=== PATIENT | male | born 1935 | race Caucasian/White ===

== ENCOUNTER → 2016-09-10 08:53 | Day surgery (SDC) | payer OTHER ==
[~2016-09-10 08:53] MED LIST: Acetaminophen TAB* 325 MG PO PRN; Buffered Lidocaine 1% SYR 3ML* 3 ML/SYR SYRINGE INTRADERM ONE; Buffered Lidocaine 1% SYR 3ML* 3 ML/SYR SYRINGE ONE; Cyclopentolate 1% OPTH.SOL* 2 ML BTL ONE; Flurbiprofen 0.03% OPTH.SOL* 2.5 ML BTL ONE; Lidocaine 1% MPF* 2 ML VIAL ONE; Lidocaine 2% EPI 1:200000 MPF* 20 ML VIAL ONE; Midazolam* 1 MG/ML 2 ML VIAL (2 MG) ONE; Neomycin/Polymy/Dex OPTH.SUSP* MAXITROL 0.1% 5 ML ONE; Phenylephrine 2.5% OPTH.SOL* 2 ML BTL ONE; Povidone Iodine 5% OPTH* 30 ML BTL ONE; Proparacaine 0.5% OPHTH.SOL* 15 ML BTL ONE; acetaZOLAMIDE TAB* 250 MG ONE
[2016-09-10 12:17] VITALS: BP 136/76
--- NOTE | 2016-09-10 13:07 | OP ---
DATE OF OPERATION: 09/10/2016. DATE OF : 1935. SURGEON: Brandyn Swan M.D. PREOPERATIVE DIAGNOSIS: Cataract right eye. POSTOPERATIVE DIAGNOSIS: Cataract right eye. OPERATIVE PROCEDURE: Phacoemulsification right eye with IOL. PROCEDURE: The patient was brought to the operating room after being given 1/2% Alcaine with epinep hrine drops in the preoperative area. The eye was prepped and draped in the usual sterile fashion. Sterile drape and eyelid speculum were placed. Again, topical 1/2% Alcaine with epinephrine was gi saurabh. A paracentesis incision was made at the 9 o'clock position with the No.75 blade. Clear cornea incision 2.2 x 2.2-mm was created at the 12 o'clock position starting at the anterior limbus using the 2.2-mm keratome. The anterior chamber was irrigated with 0.4 mL of 1% non-preservative intracam eral lidocaine and filled with DisCoVisc. A capsulorrhexis was completed using the cystotome and th e Utrata forceps. Hydrodissection was performed with balanced salt solution. The lens nucleus was r emoved with the Phacoemulsification handpiece without incident. Cortex was removed with the irrigat ion-aspiration handpiece. The capsular bag was re-inflated using DisCoVisc and an SN60WF 22.5 impla nt was inserted with the shooter. The irrigation-aspiration handpiece was used to remove all residu al DisCoVisc. The eye was refilled with balanced salt solution and the wound checked and found to b e watertight. Topical Maxitrol drops were given. [id number]/[facility] #: [id number]
== END | disposition home or self-care (01) ==
LOC: OREAST 08:53
PROVIDERS: ATTEND Specialist
DX: H25.811 Combined forms of age-related cataract, right eye (principal); D69.6 Thrombocytopenia, unspecified
CPT/HCPCS: A9270-GY; J2250; V2632

== ENCOUNTER 2017-10-26 10:57 | Emergency (ER) | payer OTHER ==
--- NOTE | 2017-10-26 12:06 | RAD ---
INDICATION: Fall. Possible head injury COMPARISON: None TECHNIQUE: Noncontrast axial source images were acquired from the skull base to the vertex. FINDINGS: Ventricles/sulci: The ventricles and cisterns are normal in size and configuration for age. There are age-related involutional changes Brain parenchyma: There is no focal parenchymal finding, evidence of intracranial mass, or intracranial mass effect. Intracranial hemorrhage:None. Extra-axial spaces: There are no abnormal extra axial fluid collections or evidence of extra-axial mass. Calvarium: There is no calvarial fracture or other calvarial abnormality. Scalp: There is no evidence of scalp or extracalvarial soft tissue abnormality. Paranasal sinuses/mastoid: The paranasal sinuses and mastoid air cells are clear. Other: None. IMPRESSION: No acute intracranial findings
--- NOTE | 2017-10-26 12:20 | RAD ---
INDICATION: Right elbow pain COMPARISON: None TECHNIQUE: AP, lateral, and oblique views were obtained. FINDINGS: The bony structures, joint spaces, and soft tissues are normal for age. IMPRESSION: NEGATIVE EXAMINATION.
[2017-10-26 12:43] VITALS: BP 126/61
--- NOTE | 2017-10-26 15:47 | ED ---
Adult Trauma - HPI Summary HPI Summary: Patient presents to the ED status post fall approximately 1 hour prior to arrival. He endorses right posterior elbow pain. He states the fall was mechanical, however after he got up from the fall he began to feel dizzy and lightheaded and nauseous. Denies vomiting. By the time he arrived to the ED, he states he felt improved, however is continuing to complain of right elbow pain. He is unsure if he hit his head, but denies loss of consciousness. He states he was needing the assistance of those around him as he was dizzy after the accident. He denies any blood thinners, is neurologically intact and is otherwise healthy. There is no bleeding or bruising from the elbow. He denies any headache, confusion, memory loss. - History of Current Complaint Chief Complaint: EDDizziness Stated Complaint: FALL,RT ELBOW PAIN Time Seen by Provider: 10/26/17 11:05 Hx Obtained From: Patient Mechanism of Injury: Direct Blow Ambulatory at the Scene: Yes Loss of Consciousness: no loss of consciousness Onset of Pain: Minutes Onset Severity: Moderate Current Severity: Moderate Pain Intensity: 0 Pain Scale Used: 0-10 Numeric Location: Other - Elbow Character: Aching Aggravating Factor(s): Movement Alleviating Factor(s): Rest Associated Signs & Symptoms: Negative: Chest Pain, Cough, Abdominal Pain, Nausea /Vomiting, Loss of Consciousness, Memory Loss, Numbness/Weakness, Painful Respirations - Allergy/Home Medications Allergies/Adverse Reactions: Allergies Allergy/AdvReac Type Severity Reaction Status Date / Time alcohol Allergy Anaphylatic Verified 10/26/17 11:56 Shock hydrocodone Allergy Eyes Verified 10/26/17 11:56 Itchy/Swollen/Red/Watery kiwi Allergy Swelling Verified 10/26/17 11:56 Of Face,Lips,& Throat cats Allergy Mild Itching Uncoded 09/10/16 09:39 PMH/Surg Hx/FS Hx/Imm Hx Previously Healthy: Yes Endocrine/Hematology History: Denies: Hx Diabetes Cardiovascular History: Denies: Hx Hypertension History: Denies: Hx Renal Disease Musculoskeletal History: Reports: Hx Arthritis - fingers Sensory History: Reports: Hx Cataracts - pending surgery, Hx Contacts or Glasses - reading Denies: Hx Hearing Aid Opthamlomology History: Reports: Hx Cataracts - pending surgery, Hx Contacts or Glasses - reading - Cancer History Cancer Type, Location and Year: basal cell carcinoma - Surgical History Surgery Procedure, Year, and Place: L knee meniscus repair. hemorreidectomy. appendectomy as a child Hx Anesthesia Reactions: No - Immunization History Hx Pertussis Vaccination: No Immunizations Up to Date: Unable to Obtain/Confirm Infectious Disease History: No Infectious Disease History: Denies: Traveled Outside the [place] in Last 30 Days - Social History Occupation: Employed Full-time Lives: With Family Alcohol Use: Occasionally Hx Substance Use: No Substance Use Type: Reports: None Hx Tobacco Use: No Smoking Status (MU): Never Smoked Tobacco Review of Systems Constitutional: Negative Negative: Fever, Chills, Fatigue Eyes: Negative Cardiovascular: Negative Genitourinary: Negative Positive: no symptoms reported, see HPI Positive: Arthralgia, Myalgia Neurological: Negative All Other Systems Reviewed And Are Negative: Yes Physical Exam Triage Information Reviewed: Yes Vital Signs On Initial Exam: Initial Vitals Temp Pulse Resp BP Pulse Ox 97.6 F 61 16 117/63 97 10/26/17 11:04 10/26/17 11:04 10/26/17 11:04 10/26/17 11:04 10/26/17 11:04 Vital Signs Reviewed: Yes Appearance: Positive: Well-Appearing, Well-Nourished Skin: Positive: Warm, Skin Color Reflects Adequate Perfusion Head/Face: Positive: Normal Head/Face Inspection Eyes: Positive: EOMI, TACOS, Conjunctiva Clear Neck: Positive: Supple, No Lymphadenopathy Respiratory/Lung Sounds: Positive: Clear to Auscultation, Breath Sounds Present Cardiovascular: Positive: Normal, RRR, Pulses are Symmetrical in both Upper and Lower Extremities Musculoskeletal: Positive: Pain @ - Right elbow joint Neurological: Positive: Speech Normal Psychiatric: Positive: Normal Diagnostics - Vital Signs Vital Signs Temp Pulse Resp BP Pulse Ox 10/26/17 12:42 97.9 F 64 16 126/61 98 10/26/17 11:04 97.6 F 61 16 117/63 97 - Laboratory Lab Statement: Any lab studies that have been ordered have been reviewed, and results considered in the medical decision making process. Adult Trauma Course/Dx - Course Course Of Treatment: On arrival to the ED, EKG immediately performed which shows sinus bradycardia, but he states this is at his baseline. Due to the uncertainty of head trauma, CT brain obtained and shows no findings. Right elbow x-ray obtained which is negative. He states he is feeling improved and would like to be discharged home. I have recommended ibuprofen 6 her milligrams 3 times a day. Range of motion is intact, but states it is with mild amount of discomfort. No ecchymosis or swelling to the area. - Diagnoses Provider Diagnoses: Right elbow pain Discharge - Discharge Plan Condition: Stable Disposition: HOME Referrals: Marck Posey MD [Primary Care Provider] -
== END 2017-10-26 12:42 | disposition home or self-care (01) ==
LOC: ED 10:57
DX: M25.521 Pain in right elbow (principal); R42 Dizziness and giddiness; Z91.81 History of falling; Z88.5 Allergy status to narcotic agent
CPT/HCPCS: 70450; 93005; 99282

== ENCOUNTER 2018-09-04 16:43 | Emergency (ER) | payer OTHER ==
[2018-09-04 17:42] VITALS: BP 143/86
--- NOTE | 2018-09-04 18:05 | UC ---
Ear Complaint HPI - HPI Summary HPI Summary: The patient is now 83-year-old male that has had intermittent severe left ear pain for about a day or 2. He has had sinus pressure and nasal congestion for about a week. He has had no fever or chills. He has Flonase at home but has not been using it. - History of Current Complaint Chief Complaint: UCEar Stated Complaint: EAR PAIN Time Seen by Provider: 09/04/18 18:05 Hx Obtained From: Patient Onset/Duration: Sudden Onset, Other - last seconds/occurs multiple times a day Severity Initially: Mild Severity Currently: Moderate Pain Intensity: 5 Pain Scale Used: 0-10 Numeric Associated Signs/Symptoms: Positive: URI Symptoms - Allergies/Home Medications Allergies/Adverse Reactions: Allergies Allergy/AdvReac Type Severity Reaction Status Date / Time alcohol Allergy Anaphylatic Verified 10/26/17 11:56 Shock hydrocodone Allergy Eyes Verified 10/26/17 11:56 Itchy/Swollen/Red/Watery kiwi Allergy Swelling Verified 10/26/17 11:56 Of Face,Lips,& Throat cats Allergy Mild Itching Uncoded 09/10/16 09:39 PMH/Surg Hx/FS Hx/Imm Hx Previously Healthy: Yes - Surgical History Surgical History: Yes Surgery Procedure, Year, and Place: L knee meniscus repair. hemorreidectomy. appendectomy as a child - Family History Known Family History: Positive: Hypertension - Social History Alcohol Use: Weekly Substance Use Type: None Smoking Status (MU): Never Smoked Tobacco Review of Systems All Other Systems Reviewed And Are Negative: Yes Constitutional: Positive: Negative Skin: Positive: Negative Eyes: Positive: Negative ENT: Positive: Ear Ache, Nasal Discharge, Sinus Congestion, Sinus Pain/ Tenderness Respiratory: Positive: Negative Cardiovascular: Positive: Negative Gastrointestinal: Positive: Negative Genitourinary: Positive: Negative Motor: Positive: Negative Neurovascular: Positive: Negative Musculoskeletal: Positive: Negative Neurological: Positive: Negative Psychological: Positive: Negative Physical Exam Triage Information Reviewed: Yes Appearance: Well-Appearing, No Pain Distress, Well-Nourished Vital Signs: Initial Vital Signs Temp 99.4 F 09/04/18 17:36 Pulse 71 09/04/18 17:36 Resp 16 09/04/18 17:36 BP 143/86 09/04/18 17:36 Pulse Ox 96 09/04/18 17:36 Vital Signs Reviewed: Yes Eyes: Positive: Conjunctiva Clear ENT: Positive: Nasal congestion, TMs normal, Uvula midline. Negative: Hearing grossly normal, Nasal drainage, Tonsillar swelling, Tonsillar exudate, Trismus, Muffled voice, Hoarse voice, Sinus tenderness Dental: Negative: Abscess @ Neck: Positive: Supple Respiratory: Positive: Lungs clear, Normal breath sounds, No respiratory distress Cardiovascular: Positive: RRR, No Murmur Musculoskeletal: Positive: ROM Intact, No Edema Neurological: Positive: Alert Psychological Exam: Normal Skin Exam: Normal Ear Complaint Course/Dx - Differential Dx/Diagnosis Provider Diagnosis: Dysfunction of left eustachian tube Discharge - Sign-Out/Discharge Documenting (check all that apply): Patient Departure All imaging exams completed and their final reports reviewed: No Studies - Discharge Plan Condition: Stable Disposition: HOME Patient Education Materials: Serous Otitis Media (ED) Referrals: Marck Posey MD [Primary Care Provider] - If Needed Additional Instructions: I suggest you use your fluticasone (flonase) nasal spray (2 sprays each nostril twice daily for 2-3 weeks - Billing Disposition and Condition Condition: STABLE Disposition: Home
== END 2018-09-04 18:21 | disposition home or self-care (01) ==
LOC: UCEAST 16:43
DX: H69.92 Unspecified Eustachian tube disorder, left ear (principal); Z88.5 Allergy status to narcotic agent
CPT/HCPCS: 99201; G0463

== ENCOUNTER 2018-10-08 09:01 | Emergency (ER) | payer OTHER ==
[2018-10-08 09:28] VITALS: BP 153/75
--- NOTE | 2018-10-08 11:10 | UC ---
Complaint Male HPI - HPI Summary HPI Summary: PT HAS HAD "LUMPS" IN BILATERAL GROIN FOR "SOME TIME". 2 DAYS AGO HE LIFTED A HEAVY BOX AND FELT A TEARING SENSATION IN LEFT GROIN. LUMP IS NOW BIGGER AND PAINFUL. DENIES URINARY SX. NO FEVER, N/V. 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 NO HISTORY OF INGUINAL HERNIA REPAIR. - History of Current Complaint Chief Complaint: UCAbdominalPain Stated Complaint: GROIN PAIN Time Seen by Provider: 10/08/18 10:35 Hx Obtained From: Patient, Family/Section Plotter Operator - Onset/Duration: Sudden Onset, Lasting Days, Still Present Timing: Constant Severity Initially: Moderate Severity Currently: Moderate Pain Intensity: 10 Pain Scale Used: 0-10 Numeric Location: Groin - LEFT Character: Sharp Aggravating Factor(s): Straining Alleviating Factor(s): Other - REST Associated Signs And Symptoms: Positive: Negative - Allergies/Home Medications Allergies/Adverse Reactions: Allergies Allergy/AdvReac Type Severity Reaction Status Date / Time alcohol Allergy Anaphylatic Verified 10/08/18 09:29 Shock hydrocodone Allergy Eyes Verified 10/08/18 09:29 Itchy/Swollen/Red/Watery kiwi Allergy Swelling Verified 10/08/18 09:29 Of Face,Lips,& Throat cats Allergy Mild Itching Uncoded 10/08/18 09:29 PMH/Surg Hx/FS Hx/Imm Hx Other Cancer History: BASAL CELL CANCER - Surgical History Surgical History: Yes Surgery Procedure, Year, and Place: L knee meniscus repair. hemorreidectomy - Family History Known Family History: Positive: Hypertension - Social History Alcohol Use: Weekly Substance Use Type: None Smoking Status (MU): Never Smoked Tobacco Review of Systems All Other Systems Reviewed And Are Negative: Yes Constitutional: Positive: Negative Skin: Positive: Negative Respiratory: Positive: Negative Cardiovascular: Positive: Negative Gastrointestinal: Positive: Abdominal Pain Genitourinary: Positive: Negative Physical Exam Triage Information Reviewed: Yes Appearance: Well-Appearing, Well-Nourished, Pain Distress - MILD - WITH MVMT Vital Signs: Initial Vital Signs Temp 98 F 10/08/18 09:26 Pulse 75 10/08/18 09:26 Resp 18 10/08/18 09:26 BP 153/75 10/08/18 09:26 Pulse Ox 100 10/08/18 09:26 Laboratory Tests 10/08/18 10:21 POC Urine Color Yellow POC Urine Clarity Clear POC Urine pH 5.5 POC Ur Specif [place] 1.020 POC Urine Protein Negative POC Ur Glucose (UA) Negative POC Urine Ketones Negative POC Urine Blood Trace-intact A POC Urine Nitrite Negative POC Urine Bilirubin Negative POC Urine Urobilinogen 0.2 POC U Leukocyte Esteras Negative Vital Signs Reviewed: Yes Eyes: Positive: Conjunctiva Clear ENT: Positive: Hearing grossly normal Neck: Positive: Supple Respiratory: Positive: No respiratory distress, No accessory muscle use Cardiovascular: Positive: Pulses Normal Abdomen Description: Positive: Soft, Other: - BILATERAL INGUINAL HERNIA - LEFT BIGGER THAN RIGHT. REDUCIBLE BUT VERY TENDER. Negative: CVA Tenderness (R), CVA Tenderness (L), Distended, Guarding Musculoskeletal: Positive: No Edema Neurological: Positive: Alert Psychological: Positive: Normal Response To Family, Age Appropriate Behavior Skin: Negative: Rashes Complaint Male Course/Dx - Course Course Of Treatment: BILATERAL INGUINAL HERNIAS ON PHYSICAL EXAM. LEFT IS WORSE. REDUCIBLE BUT PAINFUL. APPT WITH SURGERY SCHEDULED FOR TODAY AT 11:45AM. PT ALSO ADVISED TO FOLLOW-UP ON TRACE BLOOD IN THE URINE. - Differential Dx/Diagnosis Provider Diagnosis: Bilateral inguinal hernia Discharge - Sign-Out/Discharge Documenting (check all that apply): Patient Departure All imaging exams completed and their final reports reviewed: No Studies - Discharge Plan Condition: Stable Disposition: HOME Patient Education Materials: Inguinal Hernia (ED), Hematuria (ED) Referrals: Marck Posey MD [Primary Care Provider] - If Needed Seun Yo MD [Medical Doctor] - (YOU HAVE AN APPT TODAY AT 11:45AM. GO DIRECTLY THERE FROM HERE.) Additional Instructions: GO DIRECTLY TO DR. YO'S OFFICE FROM HERE. YOU HAVE AN APPT TODAY AT 11:45AM YOU HAD TRACE BLOOD IN YOUR URINE SAMPLE TODAY. FOLLOW-UP WITH YOUR PCP IN SEVERAL WEEKS TO REPEAT YOUR URINE TEST TO ENSURE THE BLOOD HAS CLEARED. STAY WELL HYDRATED. IF THE BLOOD IS PERSISTENT I WOULD RECOMMEND UROLOGY EVALUATION. - Billing Disposition and Condition Condition: STABLE Disposition: Home
[2018-10-08] MEDS ORDERED: Ondansetron ODT TAB* 4 MG PO ONE (11:27)
== END 2018-10-08 11:10 | disposition home or self-care (01) ==
LOC: UCEAST 09:01
DX: K40.20 Bilateral inguinal hernia, without obstruction or gangrene, not specified as recurrent (principal); Z88.5 Allergy status to narcotic agent
CPT/HCPCS: 81003; 99211; G0463

== ENCOUNTER → 2018-10-12 11:52 | Day surgery (SDC) | payer OTHER ==
[~2018-10-12 11:52] MED LIST changes: -Buffered Lidocaine 1% SYR 3ML* 3 ML/SYR SYRINGE INTRADERM ONE; -Buffered Lidocaine 1% SYR 3ML* 3 ML/SYR SYRINGE ONE; +Buffered Lidocaine 1% SYRIN* 1 ML/SYRINGE INTRADERM ONE; +Bupivacaine 0.5% W/EPI SDV* 30 ML VIAL ONE; -Cyclopentolate 1% OPTH.SOL* 2 ML BTL ONE; -Flurbiprofen 0.03% OPTH.SOL* 2.5 ML BTL ONE; +Lactated Ringers 1000 ML Bag* 1,000 ML IV SCH; +Lidocaine 1% INJ* 10 MG/ML 30 ML SDV ONE; -Lidocaine 1% MPF* 2 ML VIAL ONE; -Lidocaine 2% EPI 1:200000 MPF* 20 ML VIAL ONE; +Lidocaine 2% PF * 5 ML VIAL ONE; +Naloxone* 0.4 MG/ML 1 ML VIAL IV PRN; -Neomycin/Polymy/Dex OPTH.SUSP* MAXITROL 0.1% 5 ML ONE; +Ondansetron INJ* 2 MG/ML VIAL IV PRN; -Phenylephrine 2.5% OPTH.SOL* 2 ML BTL ONE; -Povidone Iodine 5% OPTH* 30 ML BTL ONE; -Proparacaine 0.5% OPHTH.SOL* 15 ML BTL ONE; +Propofol* 10 MG/ML 20 ML BTL ONE; -acetaZOLAMIDE TAB* 250 MG ONE; +ceFAZolin 2 GM PREMIX in ORs 2 GM/50 ML BAG IVPB ONE; +fentaNYL* 50 MCG/ML 2 ML VIAL (100 MCG VIAL) IV PRN; +oxyCODONE TAB* 5 MG TAB PO PRN
[2018-10-12 15:18] VITALS: BP 134/79
--- NOTE | 2018-10-12 18:54 | OP ---
CC: Dr. Marck Posey * DATE OF OPERATION: 10/12/18 - MERGED WITH [facility] DATE OF : 33. SURGEON: Seun Yo MD VAMP MARKER: None. ANESTHESIOLOGIST: Dr. Parra. ANESTHESIA: LMAC anesthesia. PRE-OP DIAGNOSIS: Left inguinal hernia. POST-OP DIAGNOSIS: Left inguinal hernia. OPERATIVE PROCEDURE: Open repair of left inguinal hernia with mesh. DESCRIPTION OF PROCEDURE: The patient was supine on the operating room table. After adequate intravenous sedation, compression stockings, and Jaclyn Hugger warmer, the left groin was clipped and prepped with antiseptic, draped in a sterile fashion. Local infiltrative anesthesia was administered. Approximately 6 cm incision was created and carried down to the external oblique , which was opened in the direction of its fibers. Cord structures were encircled with a [place] drain and tented upward. The indirect space had a moderate sized sac, which was easily dissected free and reduced and a cone mesh plug was placed into the internal ring, sutured there with 2-0 Vicryl. A second piece of mesh was placed over the inguinal floor, sutured at the tubercle. Tails were split, brought around the cord structures and tacked down laterally. External oblique was closed over top with 2- 0 Vicryl, Sarah's with 3-0 Vicryl, and skin with 4-0 Prolene followed by a sterile dressing. He tolerated the procedure well, was brought to Recovery in good condition. There were no complications. No drains. No pathologic specimens. Sponge and instrument counts correct. Estimated blood loss 10 mL. [id number]/[facility] #: [id number] [facility]OSPITALKecia
== END | disposition home or self-care (01) ==
LOC: OR 11:52
PROVIDERS: ATTEND Surgery
DX: K40.90 Unilateral inguinal hernia, without obstruction or gangrene, not specified as recurrent (principal); Z86.718 Personal history of other venous thrombosis and embolism; M19.90 Unspecified osteoarthritis, unspecified site; N40.0 Benign prostatic hyperplasia without lower urinary tract symptoms
CPT/HCPCS: C1781; J0690; J2250; J2704

== ENCOUNTER 2019-05-23 12:41 | Day surgery (SDC) | payer OTHER ==
[~2019-05-23 12:41] MED LIST changes: -Acetaminophen TAB* 325 MG PO PRN; -Bupivacaine 0.5% W/EPI SDV* 30 ML VIAL ONE; +Famotidine IV* 10 MG/ML 2 ML (20 mg) IV ONE; -Lidocaine 1% INJ* 10 MG/ML 30 ML SDV ONE; -Lidocaine 2% PF * 5 ML VIAL ONE; -Midazolam* 1 MG/ML 2 ML VIAL (2 MG) ONE; -Naloxone* 0.4 MG/ML 1 ML VIAL IV PRN; -Ondansetron INJ* 2 MG/ML VIAL IV PRN; -Propofol* 10 MG/ML 20 ML BTL ONE; -ceFAZolin 2 GM PREMIX in ORs 2 GM/50 ML BAG IVPB ONE; -fentaNYL* 50 MCG/ML 2 ML VIAL (100 MCG VIAL) IV PRN; -oxyCODONE TAB* 5 MG TAB PO PRN
[2019-05-23] MEDS ORDERED: Famotidine IV* 10 MG/ML 2 ML (20 mg) ONE (13:26)
[2019-05-23] MEDS ORDERED: Bupivacaine 0.25% SDV PF* 10 ML VIAL INJ ONE (14:39)
[2019-05-23] MEDS ORDERED: Midazolam* 1 MG/ML 2 ML VIAL (2 MG) ONE (17:01)
[2019-05-23] MEDS ORDERED: fentaNYL* 50 MCG/ML 2 ML VIAL (100 MCG VIAL) ONE (17:01)
[2019-05-23] MEDS ORDERED: Naloxone* 0.4 MG/ML 1 ML VIAL IV PRN (18:12)
[2019-05-23 19:08] VITALS: BP 117/75
--- NOTE | 2019-05-23 23:20 | OP ---
DATE OF OPERATION: 05/23/19 - [facility] DATE OF : 33 SURGEON: Cheko Solorzano MD. PRE-OP DIAGNOSIS: Lymphoma. POST-OP DIAGNOSIS: Lymphoma. OPERATIVE PROCEDURE: Placement of PowerPort. INDICATIONS: Lymphoma requiring treatment. Risks of PowerPort included, but not limited to, bleeding, infection, pneumothorax explained to the patient who seemed to understand and agreed to the procedure and all questions answered. DESCRIPTION OF PROCEDURE: In the operating room, in the supine position, the left chest was prepped and draped in sterile fashion. Preoperative antibiotics had been given. He was placed in the Trendelenburg position. A needle was placed in the subclavian vein, and using Seldinger technique, a wire was passed into the vein towards the superior vena cava, identified on fluoroscopy. The needle was removed. The tract was dilated. A split sheath was placed over the wire. The wire was removed. The catheter was advanced through this split sheath down towards the superior vena cava, identified on fluoroscopy. The catheter was then tunneled under the skin to a subcutaneous pocket and connected to the port, which was placed in the pocket and aspirated blood easily and flushed with heparinized saline. The wound was closed in layers using 3-0 Monocryl. Glue was applied to the skin. He tolerated the procedure well. He was taken to the recovery room in stable condition where a chest x- ray was performed, showed good position of the catheter. No obvious pneumothorax. [id number]/[facility] #: [id number] MTDD
== END 2019-05-23 19:11 | disposition home or self-care (01) ==
LOC: OR 12:41
PROVIDERS: ATTEND Surgery
DX: C85.90 Non-Hodgkin lymphoma, unspecified, unspecified site (principal); I95.1 Orthostatic hypotension; M19.90 Unspecified osteoarthritis, unspecified site; D69.6 Thrombocytopenia, unspecified
CPT/HCPCS: 71045; 76000; C1788; J1642; J2250; J3010; J3490

== ENCOUNTER → 2019-06-14 11:16 | Day surgery (SDC) | payer OTHER ==
[~2019-06-14 11:16] MED LIST changes: -Buffered Lidocaine 1% SYRIN* 1 ML/SYRINGE INTRADERM ONE; -Famotidine IV* 10 MG/ML 2 ML (20 mg) IV ONE; +Heparin 2 UNITS/ML IVPREMIX* 1,000 ML IV SCH; -Lactated Ringers 1000 ML Bag* 1,000 ML IV SCH; +fentaNYL* 50 MCG/ML 2 ML VIAL (100 MCG VIAL) IV SCH
[2019-06-14 12:14] LABS: Mean Platelet Volume 8.8 fL (7.4-10.4); Platelet Count 118 10^3/uL (150-450)
[2019-06-14 12:24] LABS: Activated Partial Thrombo Time 28.4 seconds (26.0-38.0); INR 0.94 (0.82-1.09)
[2019-06-15 08:52] VITALS: BP 108/56
== END | disposition home or self-care (01) ==
LOC: IMG 11:16
PROVIDERS: ATTEND Physician Assistant
DX: C82.02 Follicular lymphoma grade I, intrathoracic lymph nodes (principal)
CPT/HCPCS: 36415; 37191; 85049; 85610; 85730; C1880; C1894; J1644; J3010; Q9967

== ENCOUNTER → 2019-11-02 10:28 | Day surgery (SDC) | payer OTHER ==
[~2019-11-02 10:28] MED LIST changes: +Heparin 2 UNITS/ML IVPREMIX* 1,000 ML IV ONE; -Heparin 2 UNITS/ML IVPREMIX* 1,000 ML IV SCH; +Iohexol 350 (CONTRAST) 200 ML MDV IV ONE; +LORazepam TAB(*) 1 MG ONE; +Lidocaine 1% INJ* 10 MG/ML 30 ML SDV ONE; +Midazolam* 1 MG/ML 5 ML VIAL (5 MG) ONE; -fentaNYL* 50 MCG/ML 2 ML VIAL (100 MCG VIAL) IV SCH; +fentaNYL* 50 MCG/ML 2 ML VIAL (100 MCG VIAL) ONE
[2019-11-02 11:52] LABS: ABS Eosinophils 0.1 10^3/ul (0-0.6); ABS Lymphocytes 0.9 10^3/ul (1.0-4.8); ABS Monocytes 0.7 10^3/ul (0-0.8); ABS Neutrophils 8.5 10^3/ul (1.5-7.7); Eosinophil % 0.7 %; Hematocrit 38 % (42-52); Hemoglobin 12.7 g/dL (14.0-18.0); Mean Corpuscular HGB Conc 33 g/dL (31-36); Mean Corpuscular Hemoglobin 31 pg (27-31); Mean Corpuscular Volume 92 fL (80-94); Mean Platelet Volume 8.9 fL (7.4-10.4); Platelet Count 155 10^3/uL (150-450); Red Blood Count 4.15 10^6 /uL (4.18-5.48); Red Cell Distribution Width 14 % (10-15); White Blood Count 10.3 10^3/uL (3.5-10.8)
[2019-11-02 12:04] LABS: BUN/Creatinine Ratio 31.2 (8-20); Calcium 9.5 mg/dL (8.6-10.3); EGFR African American 93.4 (>60); EGFR Non-African American 77.2 (>60); Potassium 4.3 mmol/L (3.5-5.0)
[2019-11-02 16:05] VITALS: BP 127/74
--- NOTE | 2019-11-02 16:21 | PN ---
Progress Note - Progress Note Date of Service: 11/02/19 SOAP: Subjective: No pain complaints at right neck or elsewhere. No abdominal pain. Objective: Selected Entries 11/02/19 11/02/19 15:28 15:44 Heart Rate 67 Respiratory 23 Rate Blood Pressure 127/74 (mmHg) Blood Pressure 93 Mean O2 Sat by Pulse 96 Oximetry Sitting up eating sandwich. AAO x 3 NAD Right neck is soft and nontender. There is a small amount of dried blood on the gauze. There is no abdominal tenderness to palpation. Assessment: 84-year-old man status post cavogram and uncomplicated removal of inferior vena cava filter. Plan: 1. DC to home. 2. No specific clinical follow-up is necessary, but if the patient experiences any abdominal pain or new lower extremity swelling he was advised to contact interventional radiology promptly.
== END | disposition home or self-care (01) ==
LOC: CHICATH 10:28
PROVIDERS: ATTEND Radiology Diagnostic Radiology
DX: Z86.711 Personal history of pulmonary embolism (principal); Z86.718 Personal history of other venous thrombosis and embolism; M54.6 Pain in thoracic spine
CPT/HCPCS: 36415; 37193; 75825; 76937; 80048; 85025; 88300; 99156; 99157; A9270-GY; C1769; J1644; J2250; J3010

== ENCOUNTER 2021-08-04 21:18 | Inpatient (IN) ==
[2021-08-04 22:57] LABS: ALT 11 U/L (7-52); AST 18 U/L (13-39); Albumin 3.7 g/dL (3.2-5.2); Albumin/Globulin Ratio 1.8 (1-3); Alkaline Phosphatase 68 U/L (35-149); Anion Gap 7 mmol/L (2-11); Blood Urea Nitrogen 25 mg/dL (6-24); C Reactive Protein 30.58 mg/L (<8.01); CO2 Carbon Dioxide 24 mmol/L (22-32); Calcium 8.6 mg/dL (8.6-10.3); Chloride 101 mmol/L (101-111); Globulin 2.1 g/dL (2-4); Glucose 107 mg/dL (70-100); Potassium 4.2 mmol/L (3.5-5.0); Sodium 132 mmol/L (135-145); Total Protein 5.8 g/dL (6.4-8.9); eGFR CKD-EPI 66.4 (>60)
[2021-08-04 23:01] LABS: Hematocrit 30 % (42-52); Hemoglobin 10.3 g/dL (14.0-18.0); Mean Corpuscular HGB Conc 35 g/dL (31-36); Mean Corpuscular Hemoglobin 33 pg (27-31); Mean Corpuscular Volume 94 fL (80-94); Mean Platelet Volume 9.1 fL (7.4-10.4); Platelet Count 67 10^3/uL (150-450); Red Blood Count 3.17 10^6 /uL (4.18-5.48); Red Cell Distribution Width 14 % (10-15); White Blood Count 0.8 10^3/uL (3.5-10.8)
[2021-08-04 23:04] LABS: Troponin I 0.04 ng/mL (<0.03)
[2021-08-04 23:21] LABS: ABS Lymphocytes 0.3 10^3/ul (1.0-4.8); ABS Monocytes 0.4 10^3/ul (0-0.8); ABS Neutrophils 0.1 10^3/ul (1.5-7.7); Eosinophil % 5.9 %; Lymphocyte % 35.6 %; Nucleated Red Blood Cells % 0.2
[2021-08-05] MEDS ORDERED: Cefepime 2 GM in Dextrose 2 GM/50 ML BAG IV ONE (00:55)
[2021-08-05] MEDS ORDERED: Lactated Ringers 1000 ml BAG 1,000 ML IV ONE ×2 (01:00→02:00)
[2021-08-05] MEDS ORDERED: Vancomycin 1,250 MG in NS 0.9% 250 ml 250 ML IVPB ONE (01:52)
[2021-08-05 03:11] LABS: Urine Appearance Clear; Urine Bilirubin Negative (Negative); Urine Blood Negative (Negative); Urine Color Yellow; Urine Glucose Negative (Negative); Urine Ketones Negative (Negative); Urine Nitrite Negative (Negative); Urine Protein Negative (Negative); Urine Specific Gravity 1.014 (1.002-1.030); Urine Urobilinogen Negative (Negative)
[2021-08-05 04:53] LABS: Troponin I 0.03 ng/mL (<0.03)
[2021-08-05] MEDS ORDERED: Cefepime 2 GM in Dextrose 2 GM/50 ML BAG IV SCH ×2 (09:00→17:00)
[2021-08-05] MEDS ORDERED: Cefepime 2 GM IV - ED ONCE IV ONE (09:00)
[2021-08-05] MEDS: Enoxaparin 40 MG/0.4 ML SYR SUBCUT SCH (09:13)
[2021-08-05 13:13] LABS: ABS Eosinophils 0.1 10^3/ul (0-0.6); ABS Lymphocytes 0.3 10^3/ul (1.0-4.8); ABS Monocytes 0.3 10^3/ul (0-0.8); ABS Neutrophils 0.1 10^3/ul (1.5-7.7); Eosinophil % 7.2 %; Hematocrit 32 % (42-52); Hemoglobin 11.1 g/dL (14.0-18.0); Lymphocyte % 40.9 %; Mean Corpuscular HGB Conc 34 g/dL (31-36); Mean Corpuscular Hemoglobin 32 pg (27-31); Mean Corpuscular Volume 94 fL (80-94); Mean Platelet Volume 8.8 fL (7.4-10.4); Nucleated Red Blood Cells % 0.3; Platelet Count 55 10^3/uL (150-450); Red Blood Count 3.43 10^6 /uL (4.18-5.48); Red Cell Distribution Width 14 % (10-15); White Blood Count 0.8 10^3/uL (3.5-10.8)
[2021-08-05] MEDS: Cefepime 2 GM in Dextrose 2 GM/50 ML BAG IV SCH (20:40)
[2021-08-06 06:56] LABS: Magnesium 2.1 mg/dL (1.9-2.7)
[2021-08-06] MEDS: Enoxaparin 40 MG/0.4 ML SYR SUBCUT SCH (08:00)
[2021-08-06 08:10] LABS: Calcium 8.6 mg/dL (8.6-10.3); Potassium 3.8 mmol/L (3.5-5.0)
[2021-08-06] MEDS ORDERED: Filgrastim* 480 MCG VIAL (AUTOSUB = ZARXIO*) SUBCUT SCH (09:00)
[2021-08-06 09:31] LABS: Hematocrit 33 % (42-52); Hemoglobin 11.3 g/dL (14.0-18.0); Mean Corpuscular HGB Conc 34 g/dL (31-36); Mean Corpuscular Hemoglobin 32 pg (27-31); Mean Corpuscular Volume 95 fL (80-94); Mean Platelet Volume 9.3 fL (7.4-10.4); Platelet Count 67 10^3/uL (150-450); Red Blood Count 3.47 10^6 /uL (4.18-5.48); Red Cell Distribution Width 14 % (10-15)
[2021-08-06] MEDS: Cefepime 2 GM in Dextrose 2 GM/50 ML BAG IV SCH ×2 (09:31→22:00)
[2021-08-06 10:07] LABS: ABS Eosinophils 0.1 10^3/ul (0-0.6); ABS Lymphocytes 0.4 10^3/ul (1.0-4.8); ABS Monocytes 0.5 10^3/ul (0-0.8); Eosinophil % 8.2 %; Nucleated Red Blood Cells % 0.5
[2021-08-06] MEDS ORDERED: Saline NASAL SPRAY 0.65% BTL BOTH NARES PRN (23:27)
[2021-08-07 06:33] LABS: ABS Eosinophils 0.1 10^3/ul (0-0.6); ABS Lymphocytes 0.3 10^3/ul (1.0-4.8); ABS Monocytes 0.3 10^3/ul (0-0.8); Eosinophil % 9.4 %; Hematocrit 31 % (42-52); Hemoglobin 10.7 g/dL (14.0-18.0); Lymphocyte % 45.1 %; Mean Corpuscular HGB Conc 34 g/dL (31-36); Mean Corpuscular Hemoglobin 32 pg (27-31); Mean Corpuscular Volume 95 fL (80-94); Mean Platelet Volume 8.7 fL (7.4-10.4); Nucleated Red Blood Cells % 0.6; Platelet Count 60 10^3/uL (150-450); Red Blood Count 3.29 10^6 /uL (4.18-5.48); Red Cell Distribution Width 14 % (10-15); White Blood Count 0.7 10^3/uL (3.5-10.8)
[2021-08-07 06:58] LABS: Calcium 8.8 mg/dL (8.6-10.3); Magnesium 2.1 mg/dL (1.9-2.7); Potassium 3.9 mmol/L (3.5-5.0); eGFR CKD-EPI 72.8 (>60)
[2021-08-07] MEDS: Cefepime 2 GM in Dextrose 2 GM/50 ML BAG IV SCH ×2 (09:40→21:27)
[2021-08-07] MEDS: Enoxaparin 40 MG/0.4 ML SYR SUBCUT SCH (09:40)
[2021-08-08 07:05] LABS: Hematocrit 28 % (42-52); Hemoglobin 9.9 g/dL (14.0-18.0); Mean Corpuscular HGB Conc 35 g/dL (31-36); Mean Corpuscular Hemoglobin 33 pg (27-31); Mean Corpuscular Volume 93 fL (80-94); Mean Platelet Volume 9.7 fL (7.4-10.4); Platelet Count 55 10^3/uL (150-450); Red Cell Distribution Width 14 % (10-15); White Blood Count 0.8 10^3/uL (3.5-10.8)
[2021-08-08] MEDS ORDERED: Senna TAB 8.6 mg TAB PO ONE (07:13)
[2021-08-08 08:14] LABS: RBC Morphology Normal (Normal)
[2021-08-08 08:15] LABS: ABS Lymphocytes 0.3 10^3/ul (1.0-4.8); ABS Monocytes 0.4 10^3/ul (0-0.8); Eosinophil % 5.6 %; Lymphocyte % 41.7 %; Nucleated Red Blood Cells % 0.1
[2021-08-08] MEDS ORDERED: Polyethylene Glycol 3350 17 GM PACKET PO PRN (09:13)
[2021-08-08] MEDS: Enoxaparin 40 MG/0.4 ML SYR SUBCUT SCH (09:22)
[2021-08-08] MEDS: Cefepime 2 GM in Dextrose 2 GM/50 ML BAG IV SCH ×2 (09:25→20:51)
[2021-08-08] MEDS: TBO FILGRASTIM SUBCUT SCH (12:24)
[2021-08-08] MEDS: Lidocaine 2% JELLY 6 ML TOPICAL PRN ×2 (18:37→23:29)
[2021-08-09 06:55] LABS: Hematocrit 35 % (42-52); Hemoglobin 11.8 g/dL (14.0-18.0); Mean Corpuscular HGB Conc 34 g/dL (31-36); Mean Corpuscular Hemoglobin 32 pg (27-31); Mean Corpuscular Volume 94 fL (80-94); Mean Platelet Volume 9.3 fL (7.4-10.4); Platelet Count 60 10^3/uL (150-450); Red Blood Count 3.69 10^6 /uL (4.18-5.48); Red Cell Distribution Width 14 % (10-15); White Blood Count 1.5 10^3/uL (3.5-10.8)
[2021-08-09 07:12] LABS: Calcium 8.7 mg/dL (8.6-10.3); eGFR CKD-EPI 76.5 (>60)
[2021-08-09] MEDS: Enoxaparin 40 MG/0.4 ML SYR SUBCUT SCH (08:02)
[2021-08-09] MEDS: Lidocaine 2% JELLY 6 ML TOPICAL PRN ×2 (08:02→16:25)
[2021-08-09 08:21] LABS: RBC Morphology Normal (Normal)
[2021-08-09 08:22] LABS: ABS Eosinophils 0.1 10^3/ul (0-0.6); ABS Lymphocytes 0.6 10^3/ul (1.0-4.8); ABS Monocytes 0.7 10^3/ul (0-0.8); ABS Neutrophils 0.1 10^3/ul (1.5-7.7); Eosinophil % 5.3 %; Lymphocyte % 39.4 %; Nucleated Red Blood Cells % 0.1
[2021-08-09] MEDS: Cefepime 2 GM in Dextrose 2 GM/50 ML BAG IV SCH ×2 (09:41→20:36)
[2021-08-09] MEDS: TBO FILGRASTIM SUBCUT SCH (10:01)
[2021-08-09] MEDS ORDERED: Lactated Ringers 1000 ml BAG 1,000 ML IV ONE (12:13)
[2021-08-09 13:24] LABS: Urine Appearance Clear; Urine Bilirubin Negative (Negative); Urine Blood Negative (Negative); Urine Color Yellow; Urine Glucose Negative (Negative); Urine Ketones Negative (Negative); Urine Nitrite Negative (Negative); Urine Protein 1+(30 mg/dL) (Negative); Urine Specific Gravity 1.018 (1.002-1.030); Urine Urobilinogen Negative (Negative)
[2021-08-09 13:28] LABS: Urine Bacteria Absent (Absent); Urine Red Blood Cell Trace(0-2/hpf) (Absent); Urine White Blood Cell Trace(0-5/hpf) (Absent)
[2021-08-09] MEDS ORDERED: Lactated Ringers 500 ml BAG 500 ML IV ONE (17:50)
[2021-08-10] MEDS: Lidocaine 2% JELLY 6 ML TOPICAL PRN (05:18)
[2021-08-10 08:26] LABS: Calcium 8.6 mg/dL (8.6-10.3); Magnesium 2.2 mg/dL (1.9-2.7); Potassium 4.4 mmol/L (3.5-5.0); eGFR CKD-EPI 77.5 (>60)
[2021-08-10 09:00] LABS: Polychromasia 1+
[2021-08-10] MEDS: Enoxaparin 40 MG/0.4 ML SYR SUBCUT SCH (09:12)
[2021-08-10] MEDS: TBO FILGRASTIM SUBCUT SCH (09:12)
[2021-08-10] MEDS: Cefepime 2 GM in Dextrose 2 GM/50 ML BAG IV SCH ×2 (09:13→20:35)
[2021-08-10 09:24] LABS: ABS Eosinophils 0.1 10^3/ul (0-0.6); ABS Lymphocytes 0.5 10^3/ul (1.0-4.8); ABS Monocytes 0.7 10^3/ul (0-0.8); ABS Neutrophils 0.5 10^3/ul (1.5-7.7); Eosinophil % 4.4 %; Hematocrit 29 % (42-52); Hemoglobin 10.2 g/dL (14.0-18.0); Lymphocyte % 27.4 %; Mean Corpuscular HGB Conc 35 g/dL (31-36); Mean Corpuscular Hemoglobin 33 pg (27-31); Mean Corpuscular Volume 94 fL (80-94); Mean Platelet Volume 10.1 fL (7.4-10.4); Nucleated Red Blood Cells % 0.2; Platelet Count 45 10^3/uL (150-450); Red Blood Count 3.09 10^6 /uL (4.18-5.48); Red Cell Distribution Width 14 % (10-15); White Blood Count 1.7 10^3/uL (3.5-10.8)
[2021-08-11 05:48] LABS: Platelet Morphology Large; RBC Morphology Normal (Normal)
[2021-08-11 05:49] LABS: ABS Eosinophils 0.1 10^3/ul (0-0.6); ABS Lymphocytes 0.6 10^3/ul (1.0-4.8); ABS Monocytes 0.8 10^3/ul (0-0.8); ABS Neutrophils 2.4 10^3/ul (1.5-7.7); Eosinophil % 2.3 %; Hematocrit 30 % (42-52); Hemoglobin 10.2 g/dL (14.0-18.0); Lymphocyte % 15.6 %; Mean Corpuscular HGB Conc 34 g/dL (31-36); Mean Corpuscular Hemoglobin 32 pg (27-31); Mean Corpuscular Volume 94 fL (80-94); Nucleated Red Blood Cells % 0.1; Platelet Count 46 10^3/uL (150-450); Red Cell Distribution Width 14 % (10-15)
[2021-08-11] MEDS ORDERED: TBO FILGRASTIM SUBCUT SCH ×2 (09:00)
[2021-08-11] MEDS: Cefepime 2 GM in Dextrose 2 GM/50 ML BAG IV SCH (10:38)
[2021-08-11 11:23] VITALS: BP 90/60
== END 2021-08-11 13:10 | disposition home or self-care (01) | DRG 809 ==
LOC: ED 21:18 → EDHOLD 08-05 03:34 → SUATTDRO 08-05 03:34 → MED 08-05 13:07
PROVIDERS: ADMIT Internal Medicine; ATTEND Internal Medicine